=== PATIENT | female | born 2000 | race Caucasian/White ===

== ENCOUNTER 2018-10-30 18:02 | Emergency (ER) | payer OTHER ==
[2018-10-30] MEDS ORDERED: TETRACAINE 0.5% OPHTH DROPS 4 ML EACHEYE ONE (18:20)
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
[2018-10-30] MEDS ORDERED: PROPARACAINE 0.5% OPHTH DROPS 15 ML EACHEYE STA (18:23)
[2018-10-30] MEDS ORDERED: HYDROcod/ACETAM 5/325 MG TABLET PO STA (18:37)
[2018-10-30] MEDS ORDERED: KETOROLAC 60 MG/2 ML VIAL IM STA (18:37)
[2018-10-30] MEDS ORDERED: BACITRACIN OINT TOP STA (19:39)
[2018-10-30 20:24] VITALS: BP 145/89
== END 2018-10-30 20:34 | disposition home or self-care (01) ==
LOC: ED 18:02
DX: T20.19XA Burn of first degree of multiple sites of head, face, and neck, initial encounter (principal); T23.101A Burn of first degree of right hand, unspecified site, initial encounter; T22.111A Burn of first degree of right forearm, initial encounter; T21.11XA Burn of first degree of chest wall, initial encounter; X03.0XXA Exposure to flames in controlled fire, not in building or structure, initial encounter; Y93.89 Activity, other specified
CPT/HCPCS: 96372; 99282; 99283; A9270; J3490

== ENCOUNTER 2023-01-12 13:17 | Outpatient (CLI) | payer OTHER ==
--- NOTE | 2023-01-12 14:01 | Sleep Patient Instructions ---
Sleep Center Visit Summary - Patient Visit Information Reason for Visit: Initial consult for evaluation of sleep disordered breathing and other sleep issues. - Patient Instructions Instructions Attached: Sleep Clinic Visit, Sleep Study Additional Instructions: You will be completing a sleep study, either an in-lab polysomnography (PSG) or home sleep study (HST). You will follow-up in the sleep care office after the sleep study is completed to hear the results and talk about therapy, if needed. You will be called by our office staff to schedule this appointment, but you may contact us with any questions. - Clinic Information Contact: [facility] [address] [place] [address] [email or web address] T: [phone]
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
[2023-01-12 14:22] VITALS: BP 124/74; O2SAT 99
== END 2023-01-12 13:18 | disposition home or self-care (01) ==
LOC: SC 13:17
PROVIDERS: ATTEND Nurse Practitioner Family
DX: R06.83 Snoring (principal); G47.61 Periodic limb movement disorder; G47.10 Hypersomnia, unspecified; R53.83 Other fatigue; G47.8 Other sleep disorders; E66.3 Overweight; Z68.29 Body mass index [BMI] 29.0-29.9, adult
CPT/HCPCS: 99203; 99212